=== PATIENT | male | born 1960 | race Caucasian/White ===

== ENCOUNTER 2016-10-20 15:53 | Emergency (ER) | payer MEDICAID ==
[2016-10-20 16:07] VITALS: BP 154/92
[2016-10-20] MEDS ORDERED: Diphtheria,Pertussis(Acell),Tetanus Vaccine 0.5 ML SDV IM ONE (16:43)
[2016-10-20] MEDS ORDERED: Lidocaine 1% 50 ML MDV INJECT ONE (16:43)
[2016-10-20] MEDS ORDERED: Acetaminophen/oxyCODONE 325-5 MG Tab PO ONE (16:43)
--- NOTE | 2016-10-20 17:57 | EDM.PDOC ---
ED HPI GENERAL MEDICAL PROBLEM - General Chief Complaint: Laceration Stated Complaint: R HAND LAC Time Seen by Provider: 10/20/16 16:30 Source of Information: Reports: Patient History Limitations: Reports: No Limitations - History of Present Illness INITIAL COMMENTS - FREE TEXT/NARRATIVE: 56-year-old male presents for evaluation treatment of a laceration to the right palm. Patient reports injury occurred prior to arrival in the ER. He was working with a metal efraín. He states that the efraín caught his hand causing an abrasion and then punctured his right hand. Puncture wound is on the palm near the first metacarpal. Patient reports pain and tenderness. No treatments prior to arrival in the ER. No decreased range of motion, numbness or tingling. Unsure of last tetanus. Onset: Today Location: Reports: Upper Extremity, Right Right Hand Pain Score (Numeric/FACES): 6 - Related Data Allergies Allergy/AdvReac Type Severity Reaction Status Date / Time No Known Allergies Allergy Verified 10/20/16 16:06 Home Meds: Home Meds Acetaminophen/oxyCODONE [Percocet 325-5 MG] 1 tab PO Q6H PRN #12 tablet [Rx] Cephalexin 500 mg PO BID #14 tablet 10/20/16 [Rx] Past Medical History - Past Health History Medical/Surgical History: Denies Medical/Surgical History Social & Family History - Family History Family Medical History: Noncontributory - Tobacco Use Smoking Status *Q: Unknown Ever Smoked ED ROS GENERAL - Review of Systems Review Of Systems: See Below Musculoskeletal: Reports: Hand Pain (right) Skin: Reports: Wound (right hand ventral side) Neurological: Denies: Numbness, Tingling ED EXAM, SKIN/RASH Exam: See Below Exam Limited By: No Limitations General Appearance: Alert, WD/WN, No Apparent Distress Respiratory/Chest: No Respiratory Distress Cardiovascular: Normal Peripheral Pulses, Regular Rate, Rhythm Peripheral Pulses: 2+: Radial (L), Radial (R) Extremities: Normal Range of Motion, Other (able to make a fist, flex and extend fingers both with and without resistance, oppose fingers to thumb, abdduct and adduction fingers) Neurological: Alert, Oriented, Normal Cognition Psychiatric: Normal Affect, Normal Mood Skin: Warm, Dry, Normal Color, Wound/Incision (approximately 2cm in diameter superficial skin avusion to the right ventral hand; 2cm in length "V" shaped laceration to the right ventral hand medial to the first metacarpal) Location, Skin: Upper Extremity, Right Characteristics: Linear Associated features: Tenderness ED SKIN PROCEDURES - Laceration/Wound Repair Right Ventral Hand Lac/Wound length In cm: 1.5 Appearance: Subcutaneous, Irregular Distal NVT: Neuro & Vascular Intact, No Tendon Injury Anesthetic Type: Local Local Anesthesia - Lidocaine (Xylocaine): 1% Plain Local Anesthetic Volume: 2cc Skin Prep: Chlorhexidine (Hibiciens), Saline, Sterile Drape Exploration/Debridement/Repair: Wound Explored, No Foreign Material Found, Other (irrigated extensively with 400mls of sterile water) Closed with: Sutures Suture Size: 4-0 # of Sutures: 2 Suture Type: Nylon, Interrupted, Simple Sterile Dressing Applied: Nurse Tetanus Status Addressed: Yes Complications: No Course - Vital Signs Last Recorded V/S: Last Vital Signs Temp 35.7 C 10/20/16 16:03 Pulse 78 10/20/16 16:03 Resp 18 10/20/16 16:03 BP 154/92 H 10/20/16 16:03 Pulse Ox 97 10/20/16 16:03 - Orders/Labs/Meds Orders: Active Orders 24 hr Category Date Time Status Vaccines to be Administered [RC] PER UNIT ROUTINE Care 10/20/16 16:44 Active Meds: Medications Discontinued Medications Generic Name Dose Route Start Last Admin Trade Name Julianoq PRN Reason Stop Dose Admin Diphtheria/Tetanus/Acell Pertussis 0.5 ml 10/20/16 16:43 10/20/16 17:01 Adacel IM 10/20/16 16:44 0.5 ml .ONCE ONE Administration Lidocaine HCl 50 ml 10/20/16 16:43 10/20/16 16:55 Xylocaine 1% INJECT 10/20/16 16:44 50 ml ONETIME ONE Administration Oxycodone/Acetaminophen 1 tab 10/20/16 16:43 10/20/16 16:55 Percocet 325-5 Mg PO 10/20/16 16:44 1 tab ONETIME ONE Administration - Radiology Interpretation Free Text/Narrative:: xray of the right hand shows no acute fractures or dislocations. No foreign material found. - Re-Assessments/Exams Free Text/Narrative Re-Assessment/Exam: 10/20/16 18:00 The wound was irrigated extensively with about 400 mils of sterile water. Prior to that the wound was soaked in a solution of sterile water and chlorhexidine. Tetanus was updated. 2 sutures were placed to the right palm. Wound was dressed. I will provide the patient with antibiotics this was a deep wound and it sounds like it was a dirty efraín that he cut himself with. Will discharge home at this time. Discharge instructions as documented. Departure - Departure Time of Disposition: 18:01 Disposition: Home, Self-Care 01 Condition: Good Clinical Impression: Abrasion, Laceration - Discharge Information Prescriptions: Acetaminophen/oxyCODONE [Percocet 325-5 MG] 1 tab PO Q6H PRN #12 tablet PRN Reason: Pain Cephalexin 500 mg PO BID #14 tablet Instructions: Laceration Care, Adult Referrals: PCP,None [Primary Care Provider] - Melisa Leon, [employer] [Nurse Practitioner] - Forms: ED Department Discharge Additional Instructions: You were given medication in the ER that can affect your ability to drive and operate machinery. Do not drive or operate machinery within 12 hours of taking prescription narcotic pain medication. Take the cephalexin 1 tablet twice a day for 7 days. Recommend taking this with food. Wash the room with gentle soap and water twice a day. Keep the wound covered. He may apply antibacterial ointment to wound as needed. Monitor for signs of infection such as increased swelling, erythema or pus. Present to the clinic or the [place]. Take [id number] Tylenol or Motrin as needed for pain relief. For severe pain not relieved by Tylenol or Motrin take Percocet 1-2 tabs every 4-[address] operate machinery within 12 hours of taking Percocet. Percocet can be Forming, I recommend you take as few of these as needed to control your pain. Percocet is a combination of oxycodone and Tylenol. Do not take more than 4 g of Tylenol from all sources in 1 day. Have the sutures removed in 10 days. the [facility] clinic located on the east side of the [facility] is open 8 AM to 5 PM and will remove the sutures for free. Please call [phone] to schedule the provider there. Recommend Melisa leon or Selam Noyola. . The tetanus shot you received today is good for the next 10 years. Please return to the ER if your symptoms change or worsen. - My Orders Last 24 Hours: My Active Orders 10/20/16 16:44 Vaccines to be Administered [RC] PER UNIT ROUTINE - Assessment/Plan Last 24 Hours: My Active Orders 10/20/16 16:44 Vaccines to be Administered [RC] PER UNIT ROUTINE
--- NOTE | 2016-10-21 06:50 | CR ---
Right hand: Four views of the right hand were obtained. Comparison: No previous right hand study. Joint space narrowing noted within the third MCP joint. Other joint spaces are preserved. No acute fracture, dislocation or other bony abnormality is seen. Incidental note of old fracture within the distal tuft of the fifth finger. Impression: 1. Degenerative change and old injury. No acute abnormality is identified on right hand study. Diagnostic code #2
== END 2016-10-20 18:24 | disposition home or self-care (01) ==
LOC: JD.ED 15:53
DX: S61.411A Laceration without foreign body of right hand, initial encounter (principal); Z23 Encounter for immunization; W45.8XXA Other foreign body or object entering through skin, initial encounter
CPT/HCPCS: 12001; 73130; 90471; 90715; 99283; A9270

== ENCOUNTER 2019-07-07 07:37 | Inpatient (IN) | payer MEDICAID, OTHER ==
[2019-07-07] MEDS ORDERED: Ondansetron 4 MG/2 ML SDV IVPUSH ONE (08:13)
[2019-07-07] MEDS ORDERED: Famotidine 20 MG/2 ML SDV IVPUSH ONE (08:13)
[2019-07-07] MEDS ORDERED: Sodium Chloride 0.9% 10 ML Syringe FLUSH PRN ×2 (08:13→09:52)
[2019-07-07] MEDS ORDERED: HYDROmorphone 0.5 MG/0.5 ML Syringe IVPUSH ONE ×3 (08:14→11:29)
[2019-07-07] MEDS ORDERED: Sodium Chloride 0.9% 1,000 ML IV SCH (08:15)
--- NOTE | 2019-07-07 09:20 | CR ---
Abdomen: Supine and upright views of the abdomen were obtained. Comparison: No prior abdominal imaging is available. Diffuse gas is seen within small bowel and colon. Small bowel is slightly dilated. Multiple air-fluid levels are seen within small bowel. No free air is appreciated. Bony structures show nothing acute. Impression: 1. Diffuse increased gas with mildly dilated small bowel as well as air-fluid levels within small bowel. Findings suggest the possibility of a diffuse ileus or gastroenteritis. Difficult to completely exclude an early distal small bowel obstruction. 2. No other acute finding is seen. Diagnostic code #3 Study was dictated in MDT
[2019-07-07] MEDS ORDERED: Metoclopramide 10 MG/2 ML SDV IVPUSH ONE (09:41)
[2019-07-07] MEDS ORDERED: Diatrizoate Meglumine/Diatrizoate Sodium 37% 120 ML Bottle PO ONE (09:52)
[2019-07-07] MEDS ORDERED: Iopamidol 612 MG/ML 100 ML Bottle IVPUSH ONE (09:52)
--- NOTE | 2019-07-07 10:07 | EDM.PDOC ---
ED HPI GENERAL MEDICAL PROBLEM - General Chief Complaint: Abdominal Pain Stated Complaint: ABDOMINAL PAIN,VOMITING AND UNABLE TO EAT Time Seen by Provider: 07/07/19 07:52 Source of Information: Reports: Patient, RN Notes Reviewed - History of Present Illness INITIAL COMMENTS - FREE TEXT/NARRATIVE: 59 year old male comes in with abd pain. He had onset of abd pain, vomiting, and at least 1 episode of diarrhea late Saturday evening around midnight which would now be about 2 1/2 days ago. He has had continued mid to lower abd pain, nausea, has not been able to eat, drinking fluid makes him "more sick". No further vomting yesterday or today. No prior abd surgeries. No further diarrhea. Lower Abdominal Pain Score (Numeric/FACES): 6 - Related Data Allergies Allergy/AdvReac Type Severity Reaction Status Date / Time No Known Allergies Allergy Verified 07/07/19 07:45 Home Meds: Home Meds . [No Known Home Meds] 07/07/19 [History] Past Medical History - Past Health History Medical/Surgical History: Denies Medical/Surgical History Social & Family History - Family History Family Medical History: Noncontributory - Tobacco Use Smoking Status *Q: Current Every Day Smoker Years of Tobacco use: 25 Packs/Tins Daily: 0.2 - Caffeine Use Caffeine Use: Reports: Coffee - Recreational Drug Use Recreational Drug Use: No ED ROS GENERAL - Review of Systems Review Of Systems: See Below Constitutional: Denies: Fever, Chills, Diaphoresis HEENT: Reports: No Symptoms Respiratory: Denies: Shortness of Breath Cardiovascular: Denies: Chest Pain GI/Abdominal: Reports: Abdominal Pain, Diarrhea, Nausea, Vomiting. Denies: Hematochezia, Melena Musculoskeletal: Denies: Back Pain Skin: Reports: No Symptoms Neurological: Reports: No Symptoms ED EXAM, GI/ABD - Physical Exam Exam: See Below General Appearance: Alert, Moderate Distress Throat/Mouth: Other (oral mucosa dry) Head: Atraumatic Neck: Supple Respiratory/Chest: No Respiratory Distress, Lungs Clear, Normal Breath Sounds Cardiovascular: Regular Rate, Rhythm GI/Abdominal Exam: Tender (diffuse tenderness, mild guarding and rebound tenderness, mild distension mid and lower abd) Back Exam: No: CVA Tenderness (L), CVA Tenderness (R) Extremities: Normal Inspection, Normal Range of Motion. No: Pedal Edema, Leg Pain Course - Vital Signs Last Recorded V/S: Last Vital Signs Temp 101.5 F H 07/07/19 11:59 Pulse 68 07/07/19 11:40 Resp 20 07/07/19 11:40 BP 132/84 07/07/19 11:40 Pulse Ox 94 L 07/07/19 11:40 - Orders/Labs/Meds Orders: Active Orders 24 hr Category Date Time Status Gastrointestinal Tube Mgmt [RC] ASDIRECTED Care 07/07/19 12:36 Active Peripheral IV Care [RC] . DIRECTED Care 07/07/19 08:13 Active Lactated Ringers [Ringers, Lactated] 1,000 ml Med 07/07/19 12:15 Active IV ASDIRECTED Sodium Chloride 0.9% [Normal Saline] 1,000 ml Med 07/07/19 08:15 Active IV ONETIME Sodium Chloride 0.9% [Saline Flush] Med 07/07/19 08:13 Active 10 ml FLUSH ASDIRECTED PRN Sodium Chloride 0.9% [Saline Flush] Med 07/07/19 09:52 Active 10 ml FLUSH ONETIME PRN NG [Nasogastric Orogastric Tube Insertion] [OM.PC] Oth 07/07/19 12:36 Ordered Routine Peripheral IV Insertion Adult [OM.PC] Stat Ot 07/07/19 08:13 Ordered Medication Orders Heparin Sodium (Porcine) (Heparin Sodium) 5,000 units SUBCUT Q8H MINDY Sodium Chloride (Normal Saline) 1,000 mls @ 999 mls/hr IV ONETIME MNIDY Last Admin: 07/07/19 08:30 Dose: 999 mls/hr Lactated Ringer's (Ringers, Lactated) 1,000 mls @ 150 mls/hr IV ASDIRECTED MINDY Piperacillin Sod/Tazobactam (Sod 4.5 gm/ Sodium Chloride) 100 mls @ 25 mls/hr IV Q8H MINDY Piperacillin Sod/Tazobactam (Sod 4.5 gm/ Sodium Chloride) 100 mls @ 200 mls/hr IV ONETIME ONE Stop: 07/07/19 13:29 Sodium Chloride (Saline Flush) 10 ml FLUSH ASDIRECTED PRN PRN Reason: Keep Vein Open Last Admin: 07/07/19 08:20 Dose: 10 ml Sodium Chloride (Saline Flush) 10 ml FLUSH ONETIME PRN PRN Reason: IV FLUSH Last Admin: 07/07/19 10:56 Dose: 10 ml Labs: Laboratory Tests 07/07/19 07/07/19 07/07/19 Range/Units 08:20 08:20 08:20 WBC 20.14 H (4.23-9.07) K/mm3 RBC 5.09 (4.63-6.08) M/mm3 Hgb 15.3 (13.7-17.5) gm/dl Hct 46.1 (40.1-51.0) % MCV 90.6 (79.0-92.2) fl MCH 30.1 (25.7-32.2) pg MCHC 33.2 (32.2-35.5) g/dl RDW Std Deviation 47.5 H (35.1-43.9) fL Plt Count 301 (163-337) K/mm3 MPV 9.2 L (9.4-12.3) fl Neutrophils % (Manual) 93 H (40-60) % Band Neutrophils % 0 (0-10) % Lymphocytes % (Manual) 2 L (20-40) % Atypical Lymphs % 0 % Monocytes % (Manual) 5 (2-10) % Eosinophils % (Manual) 0 L (0.8-7.0) % Basophils % (Manual) 0 L (0.2-1.2) Platelet Estimate Adequate RBC Morph Comment Normal Sodium 133 L (136-145) mEq/L Potassium 4.3 (3.5-5.1) mEq/L Chloride 96 L (98-107) mEq/L Carbon Dioxide 28 (21-32) mEq/L Anion Gap 13.3 (5-15) BUN 25 H (7-18) mg/dL Creatinine 1.1 (0.7-1.3) mg/dL Est Cr Clr Drug Dosing 66.86 mL/min Estimated GFR (MDRD) > 60 (>60) mL/min BUN/Creatinine Ratio 22.7 H (14-18) Glucose 127 H (74-106) mg/dL Calcium 9.8 (8.5-10.1) mg/dL Total Bilirubin 0.8 (0.2-1.0) mg/dL AST 18 (15-37) U/L ALT 27 (16-63) U/L Alkaline Phosphatase 74 (46-116) U/L C-Reactive Protein <0.2 (<1.0) mg/dL Total Protein 8.3 H (6.4-8.2) g/dl Albumin 3.4 (3.4-5.0) g/dl Globulin 4.9 gm/dL Albumin/Globulin Ratio 0.7 L (1-2) Lipase (73-393) U/L 07/07/19 Range/Units 08:20 WBC (4.23-9.07) K/mm3 RBC (4.63-6.08) M/mm3 Hgb (13.7-17.5) gm/dl Hct (40.1-51.0) % MCV (79.0-92.2) fl MCH (25.7-32.2) pg MCHC (32.2-35.5) g/dl RDW Std Deviation (35.1-43.9) fL Plt Count (163-337) K/mm3 MPV (9.4-12.3) fl Neutrophils % (Manual) (40-60) % Band Neutrophils % (0-10) % Lymphocytes % (Manual) (20-40) % Atypical Lymphs % % Monocytes % (Manual) (2-10) % Eosinophils % (Manual) (0.8-7.0) % Basophils % (Manual) (0.2-1.2) Platelet Estimate RBC Morph Comment Sodium (136-145) mEq/L Potassium (3.5-5.1) mEq/L Chloride (98-107) mEq/L Carbon Dioxide (21-32) mEq/L Anion Gap (5-15) BUN (7-18) mg/dL Creatinine (0.7-1.3) mg/dL Est Cr Clr Drug Dosing mL/min Estimated GFR (MDRD) (>60) mL/min BUN/Creatinine Ratio (14-18) Glucose (74-106) mg/dL Calcium (8.5-10.1) mg/dL Total Bilirubin (0.2-1.0) mg/dL AST (15-37) U/L ALT (16-63) U/L Alkaline Phosphatase (46-116) U/L C-Reactive Protein (<1.0) mg/dL Total Protein (6.4-8.2) g/dl Albumin (3.4-5.0) g/dl Globulin gm/dL Albumin/Globulin Ratio (1-2) Lipase 43 L (73-393) U/L Meds: Medications Generic Name Dose Route Start Last Admin Trade Name Joy PRN Reason Stop Dose Admin Heparin Sodium (Porcine) 5,000 units 07/07/19 12:45 Heparin Sodium SUBCUT Q8H MINDY Sodium Chloride 1,000 mls @ 999 mls/hr 07/07/19 08:15 07/07/19 08:30 Normal Saline IV 999 mls/hr ONETIME MINDY Administration Lactated Ringer's 1,000 mls @ 150 mls/hr 07/07/19 12:15 Ringers, Lactated IV ASDIRECTED MINDY Piperacillin Sod/Tazobactam 100 mls @ 25 mls/hr 07/07/19 21:00 Sod 4.5 gm/ Sodium Chloride IV Q8H MINDY Piperacillin Sod/Tazobactam 100 mls @ 200 mls/hr 07/07/19 13:00 Sod 4.5 gm/ Sodium Chloride IV 07/07/19 13:29 ONETIME ONE Sodium Chloride 10 ml 07/07/19 08:13 07/07/19 08:20 Saline Flush FLUSH 10 ml ASDIRECTED PRN Administration Keep Vein Open Sodium Chloride 10 ml 07/07/19 09:52 07/07/19 10:56 Saline Flush FLUSH 10 ml ONETIME PRN Administration IV FLUSH Discontinued Medications Generic Name Dose Route Start Last Admin Trade Name Joy PRN Reason Stop Dose Admin Acetaminophen 975 mg 07/07/19 11:49 07/07/19 11:59 Tylenol PO 07/07/19 11:50 975 mg NOW ONE Administration Diatrizoate Meglum/Diatrizoate Sod 120 ml 07/07/19 09:52 Gastrografin 37% PO 07/07/19 09:53 ONETIME ONE Famotidine 20 mg 07/07/19 08:13 07/07/19 08:25 Pepcid IVPUSH 07/07/19 08:14 20 mg ONETIME ONE Administration Hydromorphone HCl 0.5 mg 07/07/19 08:14 07/07/19 08:28 Dilaudid IVPUSH 07/07/19 08:15 0.5 mg ONETIME ONE Administration Hydromorphone HCl 0.5 mg 07/07/19 09:40 07/07/19 09:47 Dilaudid IVPUSH 07/07/19 09:41 0.5 mg ONETIME ONE Administration Hydromorphone HCl 0.5 mg 07/07/19 11:29 07/07/19 11:35 Dilaudid IVPUSH 07/07/19 11:30 0.5 mg ONETIME ONE Administration Lactated Ringer's 1,000 mls @ 999 mls/hr 07/07/19 10:08 07/07/19 10:17 Ringers, Lactated IV 07/07/19 11:08 999 mls/hr .BOLUS ONE Administration Iopamidol 100 ml 07/07/19 09:52 07/07/19 10:56 Isovue-300 (61%) IVPUSH 07/07/19 09:53 100 ml ONETIME ONE Administration Metoclopramide HCl 5 mg 07/07/19 09:41 07/07/19 09:45 Reglan IVPUSH 07/07/19 09:42 5 mg ONETIME ONE Administration Ondansetron HCl 4 mg 07/07/19 08:13 07/07/19 08:23 Zofran IVPUSH 07/07/19 08:14 4 mg ONETIME ONE Administration - Re-Assessments/Exams Free Text/Narrative Re-Assessment/Exam: 07/07/19 09:30. Flat and upright abd does show quite extensive diffuse air fluid levels. CT of abd/pelvis ordered. WBC 20,000, CRP 0.2. 07/07/19 11:50. CT shows dilated small bowel, mildly dilated air filled colol. Seveloping distal small bowel or colonic obstruction possible. See Radiology report for details. Discussed with Dr Ely, will see patient in ED. Departure - Departure Time of Disposition: 12:20 Disposition: Admitted As Inpatient 68 Condition: Serious Clinical Impression: Ileus, unspecified Abdominal pain Qualifiers: Abdominal location: generalized Qualified Code(s): R10.84 - Generalized abdominal pain Vomiting Qualifiers: Vomiting type: unspecified Vomiting Intractability: non-intractable Nausea presence: with nausea Qualified Code(s): R11.2 - Nausea with vomiting, unspecified - Discharge Information Sepsis Event Note - Evaluation Sepsis Screening Result: No Definite Risk - Focused Exam Vital Signs: Vital Signs Temp Temp Pulse Resp BP Pulse Ox 07/07/19 11:59 101.5 F H 07/07/19 11:40 101.5 F H 68 20 132/84 94 L 07/07/19 07:45 99.0 F 78 20 135/84 95 Date Exam was Performed: 07/07/19 Time Exam was Performed: 13:07 ED Communication - Discussed Case With (1) Discussed Case With (1): Admitting Provider ([facility], decision to admit at about 12:20) - My Orders Last 24 Hours: My Active Orders 07/07/19 08:13 Peripheral IV Care [RC] . DIRECTED Sodium Chloride 0.9% [Saline Flush] 10 ml FLUSH ASDIRECTED PRN Peripheral IV Insertion Adult [OM.PC] Stat 07/07/19 08:15 Sodium Chloride 0.9% [Normal Saline] 1,000 ml IV ONETIME 07/07/19 09:52 Sodium Chloride 0.9% [Saline Flush] 10 ml FLUSH ONETIME PRN 07/07/19 12:15 Lactated Ringers [Ringers, Lactated] 1,000 ml IV ASDIRECTED 07/07/19 12:36 Gastrointestinal Tube Mgmt [RC] ASDIRECTED NG [Nasogastric Orogastric Tube Insertion] [OM.PC] Routine - Assessment/Plan Last 24 Hours: My Active Orders 07/07/19 08:13 Peripheral IV Care [RC] . DIRECTED Sodium Chloride 0.9% [Saline Flush] 10 ml FLUSH ASDIRECTED PRN Peripheral IV Insertion Adult [OM.PC] Stat 07/07/19 08:15 Sodium Chloride 0.9% [Normal Saline] 1,000 ml IV ONETIME 07/07/19 09:52 Sodium Chloride 0.9% [Saline Flush] 10 ml FLUSH ONETIME PRN 07/07/19 12:15 Lactated Ringers [Ringers, Lactated] 1,000 ml IV ASDIRECTED 07/07/19 12:36 Gastrointestinal Tube Mgmt [RC] ASDIRECTED NG [Nasogastric Orogastric Tube Insertion] [OM.PC] Routine
[2019-07-07] MEDS ORDERED: Lactated Ringers 1,000 ML IV ONE (10:08)
--- NOTE | 2019-07-07 11:29 | CT ---
CT abdomen and pelvis Technique: Multiple axial sections were obtained from above the dome of the diaphragm inferiorly through the pubic symphysis. Oral contrast was given which remains within the stomach and within the proximal bowel. Intravenous contrast was utilized. Delayed images were obtained through the bladder. Comparison: Prior abdominal x-ray performed earlier on same day (8:48 AM). Findings: Emphysematous change is noted within both lung bases. Liver and spleen shows no focal parenchymal abnormality. Adrenal glands show no nodule. Pancreas is within normal limits. Kidneys show symmetric contrast enhancement without hydronephrosis or mass. Aorta shows no aneurysm. No retroperitoneal adenopathy or mesenteric abnormalities are seen. Diffuse gaseous dilatation of small bowel is seen which also shows evidence of fluid. Gas dilated right and transverse colon is seen. Nondilated descending colon is seen. No discrete etiology is seen for the transition point near the splenic flexure. Fluid is seen within the pelvis which is likely reactive. No additional pelvic abnormality is appreciated. Appendix not visualized with certainty. Delayed images shows contrast within the distal ureters and bladder. Bone window settings were reviewed which shows mild scattered degenerative change within the spine. Impression: 1. Gas dilated small bowel also containing fluid. Slightly dilated air-filled colon within the right transverse regions. Descending colon is collapsed. Etiology for the transitional point within splenic flexure not visualized. This bowel gas pattern is confusing and diffuse dilatation from mesenteric ischemia is possible but no correlating etiology is seen within the proximal superior mesenteric or celiac axis is seen. Developing distal small bowel or colonic obstruction is possible. Follow-up plain film study recommended. 2. Fluid within the pelvis most likely reactive. 3. Emphysematous change within both lung bases. 4. Other findings believed to be nonacute in incidental as noted above. Diagnostic code #3
[2019-07-07] MEDS ORDERED: Acetaminophen 325 MG Tab PO ONE (11:49)
--- NOTE | 2019-07-07 12:57 | PCM.HP.2 ---
H&P History of Present Illness - General Date of Service: 07/07/19 Admit Problem/Dx: Admission Diagnosis/Problem Admission Diagnosis/Problem Acute abdomen Source of Information: Patient History Limitations: Reports: No Limitations - History of Present Illness Duration of Symptoms: Reports: Day(s): Location: Reports: Abdomen Quality: Reports: Ache Severity: Severe Worsens with: Reports: Movement Associated Symptoms: Reports: Loss of Appetite, Nausea/Vomiting Other HPI/Comments: Mr. Luna is a 59 yo who presents with abdominal pain which began almost 72 hours ago. Saturday evening, he developed sudden onset severe cramping lower abdominal pain, and he felt the urge to have a bowel movement. He had some loose stool and then vomited. This did not provide him much relief. Since then, the pain has been slightly more tolerable than when it began, but it has not abated. He denies any vomiting today. He is not passing flatus and last bowel movement was Saturday. He is febrile in the emergency department with temperature of 38.6 C, and lab work is significant for WBC of about 20,000. A CT scan shows diffusely dilated small bowel and colon up to a transition point at the distal transverse colon. The patient denies any significant medical history, although he looks unhealthy and does not see doctors. He denies any history of hospitalization. On review of systems, he denies unintentional weight loss, hematemesis or melena. He has never had a colonoscopy or any abdominal operations. He has no sick contacts. He denies any relevant family history, and he reports that since his DUI two years ago, he has not had any alcohol or other illicit substances. He smokes a few cigarettes a day. Lower Abdominal Pain Score (Numeric/FACES): 6 - Related Data Allergies/Adverse Reactions: Allergies Allergy/AdvReac Type Severity Reaction Status Date / Time No Known Allergies Allergy Verified 07/07/19 07:45 Home Medications: Home Meds . [No Known Home Meds] 07/07/19 [History] Past Medical History - Past Health History Medical/Surgical History: Denies Medical/Surgical History Social & Family History - Family History Family Medical History: Noncontributory - Tobacco Use Smoking Status *Q: Current Every Day Smoker Years of Tobacco use: 25 Packs/Tins Daily: 0.2 - Caffeine Use Caffeine Use: Reports: Coffee - Recreational Drug Use Recreational Drug Use: No H&P Review of Systems - Review of Systems: Review Of Systems: See Below General: Reports: Fever, Malaise, Decreased Appetite HEENT: Reports: No Symptoms Pulmonary: Reports: No Symptoms Cardiovascular: Reports: No Symptoms Gastrointestinal: Reports: Abdominal Pain, Anorexia, Diarrhea, Distension, Vomiting Genitourinary: Reports: No Symptoms Musculoskeletal: Reports: No Symptoms Skin: Reports: No Symptoms Psychiatric: Reports: No Symptoms Neurological: Reports: No Symptoms Hematologic/Lymphatic: Reports: No Symptoms Immunologic: Reports: No Symptoms Exam - Exam Exam: See Below - Vital Signs Vital Signs: Last Vital Signs Temp 38.6 C H 07/07/19 11:59 Pulse 68 07/07/19 11:40 Resp 20 07/07/19 11:40 BP 132/84 07/07/19 11:40 Pulse Ox 94 L 07/07/19 11:40 Weight: 65.771 kg - Exam General: Alert, Oriented, Cooperative Neck: Supple, Trachea Midline Lungs: Rales, Wheezing Cardiovascular: Regular Rate, Regular Rhythm GI/Abdominal Exam: Distended, Guarding, Rebound, Tender (Male) Exam: No Hernia Rectal (Males) Exam: Normal Exam Back Exam: Normal Inspection Extremities: Normal Inspection Skin: Warm, Dry Neuro Extensive - Mental Status: Alert, Oriented x3, Normal Mood/Affect Psychiatric: Normal Mood - Patient Data Lab Results Last 24 hrs: Laboratory Results - last 24 hr 07/07/19 07/07/19 07/07/19 Range/Units 08:20 08:20 08:20 WBC 20.14 H (4.23-9.07) K/mm3 RBC 5.09 (4.63-6.08) M/mm3 Hgb 15.3 (13.7-17.5) gm/dl Hct 46.1 (40.1-51.0) % MCV 90.6 (79.0-92.2) fl MCH 30.1 (25.7-32.2) pg MCHC 33.2 (32.2-35.5) g/dl RDW Std Deviation 47.5 H (35.1-43.9) fL Plt Count 301 (163-337) K/mm3 MPV 9.2 L (9.4-12.3) fl Neutrophils % (Manual) 93 H (40-60) % Band Neutrophils % 0 (0-10) % Lymphocytes % (Manual) 2 L (20-40) % Atypical Lymphs % 0 % Monocytes % (Manual) 5 (2-10) % Eosinophils % (Manual) 0 L (0.8-7.0) % Basophils % (Manual) 0 L (0.2-1.2) Platelet Estimate Adequate RBC Morph Comment Normal Sodium 133 L (136-145) mEq/L Potassium 4.3 (3.5-5.1) mEq/L Chloride 96 L (98-107) mEq/L Carbon Dioxide 28 (21-32) mEq/L Anion Gap 13.3 (5-15) BUN 25 H (7-18) mg/dL Creatinine 1.1 (0.7-1.3) mg/dL Est Cr Clr Drug Dosing 66.86 mL/min Estimated GFR (MDRD) > 60 (>60) mL/min BUN/Creatinine Ratio 22.7 H (14-18) Glucose 127 H (74-106) mg/dL Calcium 9.8 (8.5-10.1) mg/dL Total Bilirubin 0.8 (0.2-1.0) mg/dL AST 18 (15-37) U/L ALT 27 (16-63) U/L Alkaline Phosphatase 74 (46-116) U/L C-Reactive Protein <0.2 (<1.0) mg/dL Total Protein 8.3 H (6.4-8.2) g/dl Albumin 3.4 (3.4-5.0) g/dl Globulin 4.9 gm/dL Albumin/Globulin Ratio 0.7 L (1-2) Lipase (73-393) U/L 07/07/19 Range/Units 08:20 WBC (4.23-9.07) K/mm3 RBC (4.63-6.08) M/mm3 Hgb (13.7-17.5) gm/dl Hct (40.1-51.0) % MCV (79.0-92.2) fl MCH (25.7-32.2) pg MCHC (32.2-35.5) g/dl RDW Std Deviation (35.1-43.9) fL Plt Count (163-337) K/mm3 MPV (9.4-12.3) fl Neutrophils % (Manual) (40-60) % Band Neutrophils % (0-10) % Lymphocytes % (Manual) (20-40) % Atypical Lymphs % % Monocytes % (Manual) (2-10) % Eosinophils % (Manual) (0.8-7.0) % Basophils % (Manual) (0.2-1.2) Platelet Estimate RBC Morph Comment Sodium (136-145) mEq/L Potassium (3.5-5.1) mEq/L Chloride (98-107) mEq/L Carbon Dioxide (21-32) mEq/L Anion Gap (5-15) BUN (7-18) mg/dL Creatinine (0.7-1.3) mg/dL Est Cr Clr Drug Dosing mL/min Estimated GFR (MDRD) (>60) mL/min BUN/Creatinine Ratio (14-18) Glucose (74-106) mg/dL Calcium (8.5-10.1) mg/dL Total Bilirubin (0.2-1.0) mg/dL AST (15-37) U/L ALT (16-63) U/L Alkaline Phosphatase (46-116) U/L C-Reactive Protein (<1.0) mg/dL Total Protein (6.4-8.2) g/dl Albumin (3.4-5.0) g/dl Globulin gm/dL Albumin/Globulin Ratio (1-2) Lipase 43 L (73-393) U/L Result Diagrams: 07/07/19 08:20 07/07/19 08:20 Sepsis Event Note - Evaluation Sepsis Screening Result: No Definite Risk - Focused Exam Vital Signs: Vital Signs Temp Temp Pulse Resp BP Pulse Ox 07/07/19 11:59 38.6 C H 07/07/19 11:40 38.6 C H 68 20 132/84 94 L 07/07/19 07:45 37.2 C 78 20 135/84 95 Date Exam was Performed: 07/07/19 Time Exam was Performed: 12:50 *Q Meaningful Use (ADM) - VTE Risk Assess *Q Each Risk Factor Represents 1 Point: Age 41 - 59 years Total Score 1 Point Risk Factors: 1 Each Risk Factor Represents 2 Points: Patient confined to bed greater than 72 hours Total Score 2 Point Risk Factors: 2 Problem List Initiated/Reviewed/Updated: Yes Orders Last 24hrs: Active Orders 24 hr Category Date Time Status Patient Status [ADT] Routine ADT 07/07/19 12:40 Ordered Activity as Tolerated [RC] .Routine Care 07/07/19 12:40 Ordered Antiembolic Devices [RC] PER UNIT ROUTINE Care 07/07/19 12:41 Ordered Communication Order [RC] ASDIRECTED Care 07/07/19 12:44 Ordered EKG Documentation Completion [RC] ASDIRECTED Care 07/07/19 12:48 Ordered Gastrointestinal Tube Mgmt [RC] ASDIRECTED Care 07/07/19 12:36 Active Oxygen Therapy [RC] PRN Care 07/07/19 12:40 Ordered Peripheral IV Care [RC] . DIRECTED Care 07/07/19 08:13 Active RT Incentive Spirometry [RC] Q1HWA Care 07/07/19 12:40 Ordered Vital Signs [RC] Q4HR Care 07/07/19 12:40 Ordered Nothing Per Oral Diet [DIET] Diet 07/07/19 Breakfast Ordered BASIC METABOLIC PANEL,BMP [CHEM] AM Lab 07/08/19 05:11 Ordered BASIC METABOLIC PANEL,BMP [CHEM] Timed Lab 07/07/19 16:00 Ordered CBC WITH AUTO DIFF [HEME] AM Lab 07/08/19 05:11 Ordered CBC WITH AUTO DIFF [HEME] Timed Lab 07/07/19 16:00 Ordered DRUG SCREEN, URINE [URCHEM] Stat Lab 07/07/19 12:45 Ordered LACTIC ACID W/ REFLEX [LACTATE SEPSIS W/ REFLEX] [CHEM] Lab 07/07/19 12:47 Ordered Stat Heparin Sodium Med 07/07/19 12:45 Ordered 5,000 units SUBCUT Q8H Lactated Ringers [Ringers, Lactated] 1,000 ml Med 07/07/19 12:15 Active IV ASDIRECTED Piperacillin/Tazobactam [Piperacil-Tazobact] 4.5 gm Med 07/07/19 13:00 Active Sodium Chloride 0.9% [Normal Saline] 100 ml IV ONETIME Piperacillin/Tazobactam [Piperacil-Tazobact] 4.5 gm Med 07/07/19 12:45 Ordered Sodium Chloride 0.9% [Normal Saline] 100 ml IV Q8H Sodium Chloride 0.9% [Normal Saline] 1,000 ml Med 07/07/19 08:15 Active IV ONETIME Sodium Chloride 0.9% [Saline Flush] Med 07/07/19 08:13 Active 10 ml FLUSH ASDIRECTED PRN Sodium Chloride 0.9% [Saline Flush] Med 07/07/19 09:52 Active 10 ml FLUSH ONETIME PRN NG [Nasogastric Orogastric Tube Insertion] [OM.PC] Oth 07/07/19 12:36 Ordered Routine Peripheral IV Insertion Adult [OM.PC] Stat Oth 07/07/19 08:13 Ordered Sequential Compression Device [OM.PC] Routine Oth 07/07/19 12:40 Ordered Resuscitation Status Routine Resus Stat 07/07/19 12:40 Ordered EKG 12 Lead [EK] Stat Ther 07/07/19 12:48 Ordered Medication Orders Heparin Sodium (Porcine) (Heparin Sodium) 5,000 units SUBCUT Q8H MINDY Sodium Chloride (Normal Saline) 1,000 mls @ 999 mls/hr IV ONETIME MINDY Last Admin: 07/07/19 08:30 Dose: 999 mls/hr Lactated Ringer's (Ringers, Lactated) 1,000 mls @ 150 mls/hr IV ASDIRECTED MINDY Piperacillin Sod/Tazobactam (Sod 4.5 gm/ Sodium Chloride) 100 mls @ 25 mls/hr IV Q8H MINDY Piperacillin Sod/Tazobactam (Sod 4.5 gm/ Sodium Chloride) 100 mls @ 200 mls/hr IV ONETIME ONE Stop: 07/07/19 13:29 Sodium Chloride (Saline Flush) 10 ml FLUSH ASDIRECTED PRN PRN Reason: Keep Vein Open Last Admin: 07/07/19 08:20 Dose: 10 ml Sodium Chloride (Saline Flush) 10 ml FLUSH ONETIME PRN PRN Reason: IV FLUSH Last Admin: 07/07/19 10:56 Dose: 10 ml Assessment/Plan Comment:: Abdominal pain associated with fever, diarrhea, vomiting, with imaging findings more suggestive of ileus, though possible colonic obstruction in noted. Differential at this point is led by gastroenteritis vs obstructing colon cancer ; though based on the history I favor an acute, infectious process. Though the abdominal exam is consistent with peritonitis, the patient is in no acute distress and hemodynamics are within normal range. Plan for admission, NG tube decompression, serial abdominal examinations, IV fluid resuscitation, repeat lab work later this afternoon, and broad-spectrum IV antibiotics. Currently there is low threshold for exploratory laparotomy. - Mortality Measure Prognosis:: Good
[2019-07-07] MEDS ORDERED: Piperacillin/Tazobactam 4.5 GM in Sodium Chloride 0.9% 100 ML IV ONE (13:00)
[2019-07-07] MEDS: Heparin Sodium 5,000 Units/ML Vial SUBCUT SCH ×2 (13:32→21:12)
[2019-07-07] MEDS: Lactated Ringers 1,000 ML IV SCH ×2 (14:55→21:13)
[2019-07-07] MEDS ORDERED: Benzocaine 20% Oral Spray 59.2 ML Canister MUCMEM PRN (15:24)
[2019-07-07] MEDS: Ketorolac 30 MG/ML SDV IVPUSH PRN (19:57)
[2019-07-07] MEDS: Piperacillin/Tazobactam 4.5 GM in Sodium Chloride 0.9% 100 ML IV SCH (21:11)
[2019-07-08] MEDS: Piperacillin/Tazobactam 4.5 GM in Sodium Chloride 0.9% 100 ML IV SCH ×3 (04:51→20:32)
[2019-07-08] MEDS: Heparin Sodium 5,000 Units/ML Vial SUBCUT SCH ×3 (04:51→20:32)
[2019-07-08] MEDS: Ketorolac 30 MG/ML SDV IVPUSH PRN ×2 (04:57→20:32)
--- NOTE | 2019-07-08 08:09 | PCM.SN ---
- Free Text/Narrative Note: Admitted yesterday with fever, leukocytosis, abdominal pain, and findings suggestive of bowel obstruction versus gastroenteritis. Markedly improved with NG decompression, antibiotics, and IV fluids. Urine tox screen positive for methamphetamine. S: feeling better, pain rated at a 4/10. Passed flatus. O: No fever since admission, HR 70s, SBP 120s-130s, SpO2 92-95% on room air Adequate urine output recorded. NG output ~1L bilious Abdomen is softer, less distended, less tender A: Improved in 24 hours, with diagnosis still unclear, though differential includes bowel ischemia secondary to methamphetamine abuse, gastroenteritis, partial colonic obstruction. P: Radiology unable to perform gastrograffin enema to rule out colonic obstruction due to staffing. Plan for fleets enema x 2 today in order to prep for diagnostic colonoscopy this afternoon.
[2019-07-08] MEDS: D5 1/2 NS w/ 20 mEq/L KCl 1,000 ML IV SCH (08:45)
--- NOTE | 2019-07-08 10:39 | PCM.PREANE ---
Preanesthetic Assessment - Anesthesia/Transfusion/Family Hx Anesthesia History: No Prior Anesthesia Transfusion History: No Prior Transfusion(s) - Review of Systems General: No Symptoms Pulmonary: Cough, Sputum Cardiovascular: No Symptoms Gastrointestinal: No Symptoms Neurological: No Symptoms Other: Reports: None - Physical Assessment NPO Status Date: 07/08/19 NPO Status Time: 08:00 (CLQ) Vital Signs: Last Vital Signs Temp 98.8 F 07/08/19 03:51 Pulse 73 07/08/19 03:51 Resp 18 07/08/19 03:51 BP 132/83 07/08/19 03:51 Pulse Ox 92 L 07/08/19 03:51 Height: 1.68 m Weight: 63.14 kg ASA Class: 2 Mental Status: Alert & Oriented x3 Airway Class: Mallampati = 3 Dentition: Reports: Broken Tooth/Teeth, Missing Tooth/Teeth (very poor dentition , multiple missing, upper left canines/incisors reported loose), Caries Thyro-Mental Finger Breadths: 3 Mouth Opening Finger Breadths: 3 ROM/Head Extension: Full Lungs: Normal Respiratory Effort, Rales (lower lobes) Cardiovascular: Regular Rate, Regular Rhythm - Lab Values: Laboratory Last Values WBC 4.38 K/mm3 (4.23-9.07) 07/08/19 05:25 RBC 4.35 M/mm3 (4.63-6.08) L 07/08/19 05:25 Hgb 13.1 gm/dl (13.7-17.5) L 07/08/19 05:25 Hct 39.6 % (40.1-51.0) L 07/08/19 05:25 MCV 91.0 fl (79.0-92.2) 07/08/19 05:25 MCH 30.1 pg (25.7-32.2) 07/08/19 05:25 MCHC 33.1 g/dl (32.2-35.5) 07/08/19 05:25 RDW Std Deviation 46.7 fL (35.1-43.9) H 07/08/19 05:25 Plt Count 267 K/mm3 (163-337) 07/08/19 05:25 MPV 9.5 fl (9.4-12.3) 07/08/19 05:25 Neut % (Auto) 81.1 % (34.0-67.9) H 07/08/19 05:25 Lymph % (Auto) 6.6 % (21.8-53.1) L 07/08/19 05:25 [place] % (Auto) 11.4 % (5.3-12.2) 07/08/19 05:25 Eos % (Auto) 0.7 (0.8-7.0) L 07/08/19 05:25 Baso % (Auto) 0.2 % (0.1-1.2) 07/08/19 05:25 Neut # (Auto) 3.55 K/mm3 (1.78-5.38) 07/08/19 05:25 Lymph # (Auto) 0.29 K/mm3 (1.32-3.57) L 07/08/19 05:25 [place]aca # (Auto) 0.50 K/mm3 (0.30-0.82) 07/08/19 05:25 Eos # (Auto) 0.03 K/mm3 (0.04-0.54) L 07/08/19 05:25 Baso # (Auto) 0.01 K/mm3 (0.01-0.08) 07/08/19 05:25 Neutrophils % (Manual) 93 % (40-60) H 07/07/19 08:20 Band Neutrophils % 0 % (0-10) 07/07/19 08:20 Lymphocytes % (Manual) 2 % (20-40) L 07/07/19 08:20 Atypical Lymphs % 0 % 07/07/19 08:20 Monocytes % (Manual) 5 % (2-10) 07/07/19 08:20 Eosinophils % (Manual) 0 % (0.8-7.0) L 07/07/19 08:20 Basophils % (Manual) 0 (0.2-1.2) L 07/07/19 08:20 Manual Slide Review Abnormal smear 07/08/19 05:25 Platelet Estimate Adequate 07/07/19 08:20 RBC Morph Comment Normal 07/07/19 08:20 Sodium 135 mEq/L (136-145) L 07/08/19 05:25 Potassium 3.8 mEq/L (3.5-5.1) 07/08/19 05:25 Chloride 96 mEq/L (98-107) L 07/08/19 05:25 Carbon Dioxide 26 mEq/L (21-32) 07/08/19 05:25 Anion Gap 16.8 (5-15) H 07/08/19 05:25 BUN 24 mg/dL (7-18) H 07/08/19 05:25 Creatinine 1.0 mg/dL (0.7-1.3) 07/08/19 05:25 Est Cr Clr Drug Dosing 72.79 mL/min 07/08/19 05:25 Estimated GFR (MDRD) > 60 mL/min (>60) 07/08/19 05:25 BUN/Creatinine Ratio 24.0 (14-18) H 07/08/19 05:25 Glucose 114 mg/dL (74-106) H 07/08/19 05:25 Lactic Acid 1.3 mmol/L (0.4-2.0) 07/07/19 16:35 Calcium 9.0 mg/dL (8.5-10.1) 07/08/19 05:25 Total Bilirubin 0.8 mg/dL (0.2-1.0) 07/07/19 08:20 AST 18 U/L (15-37) 07/07/19 08:20 ALT 27 U/L (16-63) 07/07/19 08:20 Alkaline Phosphatase 74 U/L (46-116) 07/07/19 08:20 C-Reactive Protein <0.2 mg/dL (<1.0) 07/07/19 08:20 Total Protein 8.3 g/dl (6.4-8.2) H 07/07/19 08:20 Albumin 3.4 g/dl (3.4-5.0) 07/07/19 08:20 Globulin 4.9 gm/dL 07/07/19 08:20 Albumin/Globulin Ratio 0.7 (1-2) L 07/07/19 08:20 Lipase 43 U/L (73-393) L 07/07/19 08:20 Urine Opiates Screen Presumptive positive (SHLINV=581) H 07/07/19 16:20 Ur Buprenorphine Scrn Negative (CUTOFF=10) 07/07/19 16:20 Ur Oxycodone Screen Negative (OPV3TH=941) 07/07/19 16:20 Urine Methadone Screen Negative (JJI3PT=189) 07/07/19 16:20 Ur Propoxyphene Screen Negative (QPOFQM=775) 07/07/19 16:20 Ur Barbiturates Screen Negative (IMSPXF=319) 07/07/19 16:20 Ur Tricyclics Screen Negative (GPZYOS=796) 07/07/19 16:20 Ur Phencyclidine Scrn Negative (CUTOFF=25) 07/07/19 16:20 Ur Amphetamine Screen Presumptive positive (WDBQYY=806) H 07/07/19 16:20 U Methamphetamines Scrn Presumptive positive (BDVIDN=773) H 07/07/19 16:20 U Benzodiazepines Scrn Negative (UUPGTS=678) 07/07/19 16:20 U Cocaine Metab Screen Negative (TWIZCO=229) 07/07/19 16:20 U Marijuana (THC) Screen Presumptive positive (CUTOFF=50) H 07/07/19 16:20 - Allergies Allergies/Adverse Reactions: Allergies Allergy/AdvReac Type Severity Reaction Status Date / Time No Known Allergies Allergy Verified 07/07/19 07:45 - Acknowledgements Anesthesia Type Planned: MAC Pt an Appropriate Candidate for the Planned Anesthesia: Yes Alternatives and Risks of Anesthesia Discussed w Pt/Guardian: Yes Pt/Guardian Understands and Agrees with Anesthesia Plan: Yes PreAnesthesia Questionnaire - Past Health History Medical/Surgical History: Denies Medical/Surgical History - Infectious Disease History Infectious Disease History: Reports: Mumps - SUBSTANCE USE Smoking Status *Q: Current Every Day Smoker Tobacco Use Within Last Twelve Months: Cigarettes Second Hand Smoke Exposure: No Recreational Drug Use History: No - HOME MEDS Home Medications: Home Meds Aspirin 81 mg PO DAILY 07/07/19 [History] Ibuprofen [Advil] 200 mg PO DAILY PRN 07/07/19 [History] - CURRENT (IN HOUSE) MEDS Current Meds: Current Medications Benzocaine (Hurricaine 20% Orwell) 0 ml MUCMEM Q2H PRN PRN Reason: sore throat Last Admin: 07/07/19 16:11 Dose: 1 applic Diphenhydramine HCl (Benadryl) 25 mg IVPUSH Q12HR PRN PRN Reason: Insomnia Heparin Sodium (Porcine) (Heparin Sodium) 5,000 units SUBCUT Q8H MINDY Last Admin: 07/08/19 04:51 Dose: Not Given Piperacillin Sod/Tazobactam (Sod 4.5 gm/ Sodium Chloride) 100 mls @ 25 mls/hr IV Q8H MINDY Last Admin: 07/08/19 04:51 Dose: 25 mls/hr Potassium Chloride/Dextrose/Sod Cl (D5 1/2 Ns W/ 20 Meq/L Kcl) 1,000 mls @ 75 mls/hr IV ASDIRECTED MINDY Last Admin: 07/08/19 08:45 Dose: 75 mls/hr Ketorolac Tromethamine (Toradol) 30 mg IVPUSH Q8H PRN PRN Reason: Pain Last Admin: 07/08/19 04:57 Dose: 30 mg Sodium Chloride (Saline Flush) 10 ml FLUSH ASDIRECTED PRN PRN Reason: Keep Vein Open Last Admin: 07/07/19 08:20 Dose: 10 ml Sodium Chloride (Saline Flush) 10 ml FLUSH ONETIME PRN PRN Reason: IV FLUSH Last Admin: 07/07/19 10:56 Dose: 10 ml Discontinued Medications Acetaminophen (Tylenol) 975 mg PO NOW ONE Stop: 07/07/19 11:50 Last Admin: 07/07/19 11:59 Dose: 975 mg Diatrizoate Meglum/Diatrizoate Sod (Gastrografin 37%) 120 ml PO ONETIME ONE Stop: 07/07/19 09:53 Last Admin: 07/07/19 15:21 Dose: Not Given Famotidine (Pepcid) 20 mg IVPUSH ONETIME ONE Stop: 07/07/19 08:14 Last Admin: 07/07/19 08:25 Dose: 20 mg Hydromorphone HCl (Dilaudid) 0.5 mg IVPUSH ONETIME ONE Stop: 07/07/19 08:15 Last Admin: 07/07/19 08:28 Dose: 0.5 mg Hydromorphone HCl (Dilaudid) 0.5 mg IVPUSH ONETIME ONE Stop: 07/07/19 09:41 Last Admin: 07/07/19 09:47 Dose: 0.5 mg Hydromorphone HCl (Dilaudid) 0.5 mg IVPUSH ONETIME ONE Stop: 07/07/19 11:30 Last Admin: 07/07/19 11:35 Dose: 0.5 mg Sodium Chloride (Normal Saline) 1,000 mls @ 999 mls/hr IV ONETIME MINDY Last Admin: 07/07/19 08:30 Dose: 999 mls/hr Lactated Ringer's (Ringers, Lactated) 1,000 mls @ 999 mls/hr IV .BOLUS ONE Stop: 07/07/19 11:08 Last Admin: 07/07/19 10:17 Dose: 999 mls/hr Lactated Ringer's (Ringers, Lactated) 1,000 mls @ 150 mls/hr IV ASDIRECTED [facility] Last Admin: 07/07/19 21:13 Dose: 150 mls/hr Piperacillin Sod/Tazobactam (Sod 4.5 gm/ Sodium Chloride) 100 mls @ 200 mls/hr IV ONETIME ONE Stop: 07/07/19 13:29 Last Admin: 07/07/19 14:16 Dose: 200 mls/hr Iopamidol (Isovue-300 (61%)) 100 ml IVPUSH ONETIME ONE Stop: 07/07/19 09:53 Last Admin: 07/07/19 10:56 Dose: 100 ml Metoclopramide HCl (Reglan) 5 mg IVPUSH ONETIME ONE Stop: 07/07/19 09:42 Last Admin: 07/07/19 09:45 Dose: 5 mg Ondansetron HCl (Zofran) 4 mg IVPUSH ONETIME ONE Stop: 07/07/19 08:14 Last Admin: 07/07/19 08:23 Dose: 4 mg
[2019-07-08] MEDS ORDERED: Propofol 200 MG/20 ML SDV ONE (12:29)
[2019-07-08] MEDS ORDERED: Lidocaine 1% 4 ML ONE (12:31)
[2019-07-08] MEDS ORDERED: fentaNYL 100 MCG/2 ML SDV ONE (12:32)
[2019-07-08] MEDS ORDERED: Lactated Ringers 1,000 ML ONE (12:37)
--- NOTE | 2019-07-08 13:19 | PCM.PRNOTE ---
- Free Text/Narrative Note: Date: 07/08/2019 Procedure: diagnostic colonoscopy Indication: obstructive symptoms with transition point noted on CT scan at distal transverse colon Endoscopist: Rodney Ely MD Findings: no obstructing lesion identified Detailed Report: Time out was performed and the patient was positioned in left lateral decubitus position. Monitored anesthesia care was initiated. A lubricated colonoscope was inserted at the anus and advanced as far as the cecum. There was abundant stool coating the mucosa and lighting was poor, but no gross obstructing lesion was noted. Air was suctioned on withdrawal of the scope. The patient tolerated the procedure well. Rodney Ely MD General Surgery
--- NOTE | 2019-07-08 13:41 | PCM48HPAN ---
Post Anesthesia Note - EVALUATION WITHIN 48HRS OF ANESTHETIC Vital Signs in Normal Range: Yes Patient Participated in Evaluation: Yes Respiratory Function Stable: Yes Airway Patent: Yes Cardiovascular Function Stable: Yes Hydration Status Stable: Yes Pain Control Satisfactory: Yes Nausea and Vomiting Control Satisfactory: Yes Mental Status Recovered: Yes Vital Signs: POST PROCEDURE VITAL SIGNS BP: 119/73, HR: 67, RR: 20, SpO2: 93%, T: 98F Last Vital Signs Temp 97.7 F 07/08/19 11:37 Pulse 75 07/08/19 11:37 Resp 16 07/08/19 11:37 BP 120/86 07/08/19 11:37 Pulse Ox 95 07/08/19 11:37
[2019-07-08] MEDS: diphenhydrAMINE 50 MG/ML SDV IVPUSH PRN (20:32)
[2019-07-09] MEDS: Piperacillin/Tazobactam 4.5 GM in Sodium Chloride 0.9% 100 ML IV SCH ×2 (05:10→12:06)
[2019-07-09] MEDS: Heparin Sodium 5,000 Units/ML Vial SUBCUT SCH ×3 (05:12→20:56)
[2019-07-09] MEDS ORDERED: Ondansetron 4 MG in Sodium Chloride 0.9% 50 ML IV PRN (14:34)
[2019-07-09] MEDS ORDERED: Promethazine 12.5 MG in Sodium Chloride 0.9% 50 ML IV PRN (14:35)
[2019-07-09] MEDS ORDERED: Simethicone 80 MG Tab.Chew PO PRN (14:36)
[2019-07-09] MEDS ORDERED: Ondansetron 4 MG/2 ML SDV IVPUSH PRN (14:40)
--- NOTE | 2019-07-09 14:42 | PCM.SN ---
- Free Text/Narrative Note: Hospital day 3- continues to improve. Diagnostic colonoscopy shows no obstructing lesion in the colon. S: mild abdominal pain rated at 3/10. Diarrhea. Minimal PO intake. O: AF-VSS abdomen distended and tympanitic, mildly tender A: Continued improvement for what seems like possible drug-induced bowel ischemia vs infectious gastroenteritis. P: -regular diet as tolerated -stop antibiotics; blood cultures no growth in 48 hours -continue maintenance IV fluids -OOB -tylenol prn pain. benadryl prn insomnia. simethicone, zofran prn -reassess tomorrow; if tolerating diet and pain manageable, plan for discharge
[2019-07-09] MEDS: D5 1/2 NS w/ 20 mEq/L KCl 1,000 ML IV SCH (21:00)
[2019-07-09] MEDS: diphenhydrAMINE 50 MG/ML SDV IVPUSH PRN (21:12)
[2019-07-10] MEDS: Heparin Sodium 5,000 Units/ML Vial SUBCUT SCH ×2 (05:40→12:01)
--- NOTE | 2019-07-10 08:59 | PCM.SN ---
- Free Text/Narrative Note: Subjective: No major interval change. Minimal PO intake, continued distention and mild abdominal pain. Reports significant diarrhea. Wishes for transfer to another hospital due to perceived lack of progress. Objective: Afebrile, VSS abdomen distended, tympanitic, soft, with moderate diffuse tenderness Assessment: abdominal pain and distention in patient who presented with fever and leukocytosis which have since resolved. Now off broad spectrum antibiotics- blood cultures showed no growth. Colonoscopy shows no obstructing lesion. Reports diarrhea, nausea, decreased appetite. Clinical picture looks more like gastroenteritis at this point. Plan: Repeat CBC Stool culture, C difficile assay, stool ova and parasite testing Requested medicine consult, Dr. Ivan will see the patient today
[2019-07-10] MEDS: Acetaminophen 325 MG Tab PO PRN (12:00)
[2019-07-10] MEDS: D5 1/2 NS w/ 20 mEq/L KCl 1,000 ML IV SCH (12:06)
--- NOTE | 2019-07-10 12:21 | PCM.CONS ---
H&P History of Present Illness - General Date of Service: 07/10/19 Admit Problem/Dx: Admission Diagnosis/Problem Admission Diagnosis/Problem Acute abdomen - History of Present Illness Initial Comments - Free Text/Narative: 59-year-old male presenting to the emergency department on July 06 after waking up at 0030 hours on July 04 with diarrhea and vomiting. He states that Saturday night he ate mac & cheese and man which. Patient continued to have pain on Saturday and ultimately the pain was so severe that he came to the emergency department. At that time he states his pain was a 10 out of 10, but now is mostly 3-4 out of 10. He does have episodes of sharp pain. Patient had mild diarrhea a couple of times on Saturday. CT of the abdomen and pelvis done on 07/07/2019 in the emergency department showed: 1. Gas dilated small bowel also containing fluid. Slightly dilated air-filled colon within the right transverse regions. Descending colon is collapsed. Etiology for the transitional point within splenic flexure not visualized. This bowel gas pattern is confusing and diffuse dilatation from mesenteric ischemia is possible but no correlating etiology is seen within the proximal superior mesenteric or celiac is seen. Developing distal small bowel or colon obstruction is possible. Patient was admitted to surgical service. Colonoscopy was performed on 07/08/2019 which showed no obstructing lesion. There was abundant stool coating the mucosa and lighting was poor, but no gross obstructing lesion was noted. Patient has had some improvement, but it has developed worsening diarrhea since colonoscopy. Medicine was consulted to give opinion on treatment. Lower Abdominal Pain Score (Numeric/FACES): 3 - Related Data Allergies/Adverse Reactions: Allergies Allergy/AdvReac Type Severity Reaction Status Date / Time No Known Allergies Allergy Verified 07/07/19 07:45 Home Medications: Home Meds Aspirin 81 mg PO DAILY 07/07/19 [History] Ibuprofen [Advil] 200 mg PO DAILY PRN 07/07/19 [History] Past Medical History - Past Health History Medical/Surgical History: Denies Medical/Surgical History - Infectious Disease History Infectious Disease History: Reports: Mumps Social & Family History - Family History Family Medical History: Noncontributory - Tobacco Use Smoking Status *Q: Current Every Day Smoker Years of Tobacco use: 25 Packs/Tins Daily: 0.2 Used Tobacco, but Quit: No Second Hand Smoke Exposure: No - Caffeine Use Caffeine Use: Reports: Coffee - Recreational Drug Use Recreational Drug Use: No H&P Review of Systems - Review of Systems: Review Of Systems: Comprehensive ROS is negative, except as noted in HPI. Exam - Exam Exam: See Below - Vital Signs Vital Signs: Last Vital Signs Temp 98.1 F 07/10/19 07:46 Pulse 61 07/10/19 07:46 Resp 16 07/10/19 07:46 BP 122/74 07/10/19 07:46 Pulse Ox 95 07/10/19 07:46 Weight: 139 lb 3.2 oz - Exam General: Alert, Oriented, 4 HEENT: Conjunctiva Clear, Mucosa Moist & [place] Neck: Supple, Trachea Midline, 2 Lungs: Clear to Auscultation, Normal Respiratory Effort GI/Abdominal Exam: Normal Bowel Sounds, Soft, Distended (Tympanic), Guarding ( Right lower quadrant), Tender (Right lower quadrant and periumbilical). No: Rigid, Rebound Extremities: Normal Inspection, Normal Range of Motion, Non-Tender, No Pedal Edema, Normal Capillary Refill Peripheral Pulses: 2+: Posterior Tibial (L), Posterior Tibial (R), Dorsalis Pedis (L), Dorsalis Pedis (R) Neuro Extensive - Mental Status: Alert, Oriented x3, Normal Mood/Affect, Normal Cognition Neuro Extensive - Motor, Sensory, Reflexes: CN II-XII Intact, Normal Gait, Normal Reflexes - Patient Data Lab Results Last 24 hrs: Laboratory Results - last 24 hr 07/10/19 07/10/19 Range/Units 09:15 10:25 WBC 10.94 H (4.23-9.07) K/mm3 RBC 4.03 L (4.63-6.08) M/mm3 Hgb 12.3 L (13.7-17.5) gm/dl Hct 36.7 L (40.1-51.0) % MCV 91.1 (79.0-92.2) fl MCH 30.5 (25.7-32.2) pg MCHC 33.5 (32.2-35.5) g/dl RDW Std Deviation 46.3 H (35.1-43.9) fL Plt Count 302 (163-337) K/mm3 MPV 8.6 L (9.4-12.3) fl Neut % (Auto) 73.5 H (34.0-67.9) % Lymph % (Auto) 9.5 L (21.8-53.1) % [place] % (Auto) 12.3 H (5.3-12.2) % Eos % (Auto) 3.5 (0.8-7.0) Baso % (Auto) 0.7 (0.1-1.2) % Neut # (Auto) 8.04 H (1.78-5.38) K/mm3 Lymph # (Auto) 1.04 L (1.32-3.57) K/mm3 [place] # (Auto) 1.35 H (0.30-0.82) K/mm3 Eos # (Auto) 0.38 (0.04-0.54) K/mm3 Baso # (Auto) 0.08 (0.01-0.08) K/mm3 C.difficile [id number] Presumptive negative C. difficile Tox (PCR) Negative Result Diagrams: 07/10/19 10:25 07/08/19 05:25 Marvin Results Last 24 hrs: Microbiology 07/07/19 13:45 Aerobic Blood Culture - Preliminary Blood - Venous - Lab Draw NO GROWTH AFTER 2 DAYS Anaerobic Blood Culture - Preliminary NO GROWTH AFTER 2 DAYS 07/07/19 13:35 Aerobic Blood Culture - Preliminary Blood - Venous NO GROWTH AFTER 2 DAYS Anaerobic Blood Culture - Preliminary NO GROWTH AFTER 2 DAYS Sepsis Event Note - Evaluation Sepsis Screening Result: No Definite Risk - Focused Exam Vital Signs: Vital Signs Temp Pulse Resp BP Pulse Ox 07/10/19 07:46 98.1 F 61 16 122/74 95 07/10/19 04:08 97.9 F 56 L 20 132/76 95 07/10/19 01:35 98.2 F 56 L 16 127/81 93 L Date Exam was Performed: 07/10/19 Time Exam was Performed: 13:11 Consult PN Assessment/Plan Procedures: Procedures EMERGENCY DEPT VISIT (10/20/16) IMMUNIZATION ADMIN (10/20/16) RPR S/N/AX/GEN/TRNK 2.5CM/< (10/20/16) TDAP VACCINE 7 YRS/> IM (10/20/16) X-RAY EXAM OF HAND (10/20/16) Problem List Initiated/Reviewed/Updated: Yes Plan: Assessment 59-year-old male with gastroenteritis type symptoms starting on Saturday morning presented with abdominal pain and mild diarrhea. Patient has had improving symptoms, but has continued pain and diarrhea since colonoscopy. Patient was on Zosyn for 2 days. C. difficile testing is negative. He was able to eat crackers and soup with strawberries today. Likely diagnoses infectious diarrhea. In the differential other etiologies include inflammatory bowel disease and mesenteric ischemia. Recommendation Trial of Carafate. Follow stool cultures Empirically start azithromycin or fluoroquinolone Agree with use of nonnarcotic pain medication. Agree with use of simethicone. Follow CBC and CMP. Thank you for allowing me to see this patient and participate in his care.
[2019-07-10] MEDS ORDERED: Azithromycin 250 MG Tab PO SCH (12:30)
[2019-07-10] MEDS: Sucralfate 1 GM Tab PO SCH ×4 (13:30→23:25)
[2019-07-10] MEDS: Ibuprofen 400 MG Tab PO PRN (20:08)
[2019-07-10] MEDS: Simethicone 80 MG Tab.Chew PO SCH ×3 (20:10→23:26)
[2019-07-10] MEDS: Zolpidem 5 MG Tab PO PRN (20:11)
[2019-07-11] MEDS: D5 1/2 NS w/ 20 mEq/L KCl 1,000 ML IV SCH ×2 (01:37→16:52)
[2019-07-11] MEDS: Simethicone 80 MG Tab.Chew PO SCH ×5 (01:37→15:45)
[2019-07-11] MEDS: Sucralfate 1 GM Tab PO SCH ×4 (06:46→21:22)
--- NOTE | 2019-07-11 08:49 | PCM.SN ---
- Free Text/Narrative Note: S: no acute events. pain is mild, same as yesterday. Reports ongoing diarrhea and one episode of vomiting this morning. 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 Rising white count is concerning as well. P: Switch back to zosyn for now as patient is not tolerating PO well. Abdominal plain films to assess for colonic distention/pseudo-obstruction- possible neostigmine later today. If vomiting persists will discuss replacement of NG tube for decompression with patient.
[2019-07-11] MEDS ORDERED: Piperacillin/Tazobactam 4.5 GM in Sodium Chloride 0.9% 100 ML IV ONE (09:00)
[2019-07-11] MEDS ORDERED: Simethicone 80 MG Tab.Chew PO PRN (15:47)
[2019-07-11] MEDS ORDERED: Iopamidol 612 MG/ML 100 ML Bottle IVPUSH ONE (16:35)
[2019-07-11] MEDS ORDERED: Diatrizoate Meglumine/Diatrizoate Sodium 37% 120 ML Bottle PO ONE (16:35)
[2019-07-11] MEDS ORDERED: Sodium Chloride 0.9% 10 ML Syringe FLUSH PRN (16:35)
[2019-07-11] MEDS: Piperacillin/Tazobactam 4.5 GM in Sodium Chloride 0.9% 100 ML IV SCH (16:45)
[2019-07-11] MEDS: Ibuprofen 400 MG Tab PO PRN (21:22)
[2019-07-11] MEDS: Zolpidem 5 MG Tab PO PRN (21:22)
[2019-07-12] MEDS: Piperacillin/Tazobactam 4.5 GM in Sodium Chloride 0.9% 100 ML IV SCH ×2 (00:12→11:02)
[2019-07-12] MEDS ORDERED: Iopamidol 612 MG/ML 100 ML Bottle IVPUSH ONE (08:00)
[2019-07-12] MEDS ORDERED: Sodium Chloride 0.9% 10 ML Syringe FLUSH PRN (08:09)
[2019-07-12] MEDS ORDERED: Sodium Chloride 0.9% 1,000 ML IV ONE (08:26)
[2019-07-12] MEDS ORDERED: Magnesium Sulfate/Water 4 GM in Premix Bag 1 BAG IV ONE (08:41)
--- NOTE | 2019-07-12 09:13 | CT ---
CT abdomen and pelvis Technique: Multiple axial sections were obtained from above the dome of the diaphragm inferiorly through the pubic symphysis. Intravenous contrast was utilized. Oral contrast is seen. Oral contrast remains mostly within proximal small bowel. Delayed images were also obtained through the bladder. Comparison: Previous CT abdomen and pelvis exam of 07/07/19. Findings: Gas and fluid-filled dilated small bowel is noted. Findings are fairly stable from previous exam. Findings suggest the possibility of distal small bowel obstruction. Etiology otherwise not visualized. Visualized lung bases shows mild atelectasis posteriorly on the left side. Liver contains no focal abnormality. Spleen appears within normal limits. Adrenal glands show no nodule. Pancreas is within normal limits. Kidneys show symmetric contrast enhancement without hydronephrosis or mass. Gallbladder contains no calcified gallstones. Aorta shows no aneurysm. No retroperitoneal adenopathy or mesenteric abnormalities are seen. No pelvic mass or adenopathy is seen. No free fluid or inflammatory change is seen. Appendix is not visualized with certainty. Small amount of ascites is seen within the abdomen and pelvis. Delayed images shows contrast within the distal ureters and within the bladder. Bone window settings were reviewed. Slight degenerative change scattered within the spine most prominent at L5-S1. No acute osseous finding is seen. Impression: 1. Gas and fluid-filled dilated small bowel. Findings most likely representing distal small bowel obstruction. Findings are fairly stable from previous exam. Etiology for this finding is not appreciated on the CT study. 2. Small amount of ascites. 3. Mild left basilar atelectasis. Diagnostic code #3 Study was dictated in MDT
[2019-07-12] MEDS: Sucralfate 1 GM Tab PO SCH ×3 (09:41→12:34)
--- NOTE | 2019-07-12 10:29 | PCM.DCSUM1 ---
Discharge Summary - Hospital Course Free Text/Narrative:: Hospital Course: 59 yo man presented to emergency room 07/07/2019 with fever, leukocytosis and abdominal pain and distention. He reported associated vomiting and diarrhea. CT scan showed dilation of large and small bowel with question of transition point at the distal transverse colon. The patient was hemodynamically stable and felt better with NG decompression. Zosyn was started after obtaining blood cultures, and within 12 hours leukocytosis resolved and patient was feeling better. Of note, his urine toxicology was positive for methamphetamine and THC. This raised concern for drug-induced bowel ischemia/ileus. Due to concern for obstructing colon lesion, a diagnostic colonoscopy was performed. Though prep was poor, the endoscopy effectively ruled out an obstructing lesion. Blood and stool cultures were negative and antibiotics stopped. NG output decreased and the patient had diarrhea and flatus, so the tube was removed. Over the next few days, he remained distended and uncomfortable. The patient was often frustrated with care and at least once demanded to leave against medical advice. He vomited one time and continued to have diarrhea and flatus, with unchanged abdominal distention and mild tenderness. His WBC slowly siri back up to over 13 ,000, and zosyn was restarted. The following day WBC was down to around 12,000. At this point, a repeat CT scan was ordered due to the patient's failure to progress (07/12/2019). This time, the scan showed decompressed ileum with bowel wall thickening in the pelvis, indicating more of an obstructive scenario rather than ongoing ileus. Exploratory laparotomy was discussed with the patient , and though he agreed to surgery, he expressed a lack of confidence and discomfort with continuing his care in [place] and requested his operation be done in [place]. On further discussion with the team in [place], there is concern that the patient may have Crohn's ileitis. The hospitalist has thus accepted the patient in transfer as there is no immediate plan for surgery, and the patient will be evaluated by the gastroenterology service. - Discharge Data Discharge Date: 07/12/19 Discharge Disposition: DC/Tfer to Acute Hospital 02 Condition: Good - Referral to Home Health Primary Care Physician: Ezequiel Dias MD - Patient Instructions Diet: NPO - Discharge Plan Home Medications: Home Meds Aspirin 81 mg PO DAILY 07/07/19 [History] Ibuprofen [Advil] 200 mg PO DAILY PRN 07/07/19 [History] Patient Handouts: Steps to Quit Smoking Referrals: Ezequiel Dias MD [Primary Care Provider] - - Discharge Summary/Plan Comment DC Time >30 min.: Yes Discharge Summary/Plan Comment: I discussed this case with the on-call hospitalist and surgeon at [facility] in [place], and the patient will be transferred with plan for exploratory laparotomy as he does not wish to have this done at [facility] in [place]. - Patient Data Vitals - Most Recent: Last Vital Signs Temp 36.5 C 07/12/19 09:53 Pulse 56 L 07/12/19 09:53 Resp 18 07/12/19 09:53 BP 160/73 H 07/12/19 09:53 Pulse Ox 93 L 07/12/19 09:53 Weight - Most Recent: 62.959 kg I&O - Last 24 hours: Intake & Output 07/11/19 07/12/19 07/12/19 22:59 06:59 14:59 Intake Total 1384 1555 Balance 1384 1555 Lab Results - Last 24 hrs: Laboratory Results - last 24 hr 07/12/19 07/12/19 07/12/19 Range/Units 04:55 04:55 04:55 WBC 12.63 H (4.23-9.07) K/mm3 RBC 4.73 (4.63-6.08) M/mm3 Hgb 14.4 D (13.7-17.5) gm/dl Hct 42.6 (40.1-51.0) % MCV 90.1 (79.0-92.2) fl MCH 30.4 (25.7-32.2) pg MCHC 33.8 (32.2-35.5) g/dl RDW Std Deviation 46.9 H (35.1-43.9) fL Plt Count 391 H (163-337) K/mm3 MPV 9.2 L (9.4-12.3) fl Neut % (Auto) 61.5 (34.0-67.9) % Lymph % (Auto) 21.1 L (21.8-53.1) % [place] % (Auto) 12.0 (5.3-12.2) % Eos % (Auto) 3.7 (0.8-7.0) Baso % (Auto) 0.7 (0.1-1.2) % Neut # (Auto) 7.78 H (1.78-5.38) K/mm3 Lymph # (Auto) 2.66 (1.32-3.57) K/mm3 [place] # (Auto) 1.51 H (0.30-0.82) K/mm3 Eos # (Auto) 0.47 (0.04-0.54) K/mm3 Baso # (Auto) 0.09 H (0.01-0.08) K/mm3 Manual Slide Review Abnormal smear Sodium 136 (136-145) mEq/L Potassium 3.7 (3.5-5.1) mEq/L Chloride 99 (98-107) mEq/L Carbon Dioxide 26 (21-32) mEq/L Anion Gap 14.7 (5-15) BUN 11 (7-18) mg/dL Creatinine 0.9 (0.7-1.3) mg/dL Est Cr Clr Drug Dosing 80.64 mL/min Estimated GFR (MDRD) > 60 (>60) mL/min BUN/Creatinine Ratio 12.2 L (14-18) Glucose 93 (74-106) mg/dL Calcium 9.0 (8.5-10.1) mg/dL Magnesium 1.7 L (1.8-2.4) mg/dl LAUREL Results - Last 24 hrs: Microbiology 07/10/19 09:15 Cryptosporidium/Giardia - Final Stool / Feces - Stool, Liquid 07/07/19 13:45 Aerobic Blood Culture - Preliminary Blood - Venous - Lab Draw NO GROWTH AFTER 4 DAYS Anaerobic Blood Culture - Preliminary NO GROWTH AFTER 4 DAYS 07/07/19 13:35 Aerobic Blood Culture - Preliminary Blood - Venous NO GROWTH AFTER 4 DAYS Anaerobic Blood Culture - Preliminary NO GROWTH AFTER 4 DAYS 07/10/19 09:15 Stool Culture - Preliminary Stool / Feces Shiga Toxin I & II - Final Med Orders - Current: Current Medications Acetaminophen (Tylenol) 650 mg PO Q6H PRN PRN Reason: Pain Last Admin: 07/10/19 12:00 Dose: 650 mg Benzocaine (Hurricaine 20% [place]) 0 ml MUCMEM Q2H PRN PRN Reason: sore throat Last Admin: 07/07/19 16:11 Dose: 1 applic Diphenhydramine HCl (Benadryl) 25 mg IVPUSH Q12HR PRN PRN Reason: Insomnia Last Admin: 07/09/19 21:12 Dose: 25 mg Potassium Chloride/Dextrose/Sod Cl (D5 1/2 Ns W/ 20 Meq/L Kcl) 1,000 mls @ 75 mls/hr IV ASDIRECTED [facility] Last Admin: 07/11/19 16:52 Dose: 75 mls/hr Promethazine HCl 12.5 mg/ (Sodium Chloride) 50.5 mls @ 100 mls/hr IV Q6H PRN PRN Reason: Nausea Piperacillin Sod/Tazobactam (Sod 4.5 gm/ Sodium Chloride) 100 mls @ 25 mls/hr IV Q8H [facility] Last Admin: 07/12/19 00:12 Dose: 25 mls/hr Magnesium Sulfate 4 gm/ Premix 50 mls @ 12.5 mls/hr IV ONETIME ONE Stop: 07/12/19 12:40 Ibuprofen (Motrin) 400 mg PO Q6H PRN PRN Reason: Pain Last Admin: 07/11/19 21:22 Dose: 400 mg Ondansetron HCl (Zofran) 4 mg IVPUSH Q8H PRN PRN Reason: NAUSEA Simethicone (Simethicone) 80 mg PO Q4H PRN PRN Reason: Indigestion Sodium Chloride (Saline Flush) 10 ml FLUSH ASDIRECTED PRN PRN Reason: Keep Vein Open Last Admin: 07/07/19 08:20 Dose: 10 ml Sodium Chloride (Saline Flush) 10 ml FLUSH ONETIME PRN PRN Reason: IV FLUSH Last Admin: 07/07/19 10:56 Dose: 10 ml Sodium Chloride (Saline Flush) 10 ml FLUSH ONETIME PRN PRN Reason: IV FLUSH Sodium Chloride (Saline Flush) 10 ml FLUSH ONETIME PRN PRN Reason: Keep Vein Open Last Admin: 07/12/19 08:30 Dose: 10 ml Sucralfate (Carafate) 1 gm PO QIDACANDBED [facility] Last Admin: 07/12/19 09:41 Dose: Not Given Zolpidem Tartrate (Ambien) 5 mg PO BEDTIME PRN PRN Reason: Insomnia Last Admin: 07/11/19 21:22 Dose: 5 mg Discontinued Medications Acetaminophen (Tylenol) 975 mg PO NOW ONE Stop: 07/07/19 11:50 Last Admin: 07/07/19 11:59 Dose: 975 mg Azithromycin (Zithromax) 250 mg PO DAILY [facility] Last Admin: 07/10/19 13:30 Dose: 250 mg Diatrizoate Meglum/Diatrizoate Sod (Gastrografin 37%) 120 ml PO ONETIME ONE Stop: 07/07/19 09:53 Last Admin: 07/07/19 15:21 Dose: Not Given Diatrizoate Meglum/Diatrizoate Sod (Gastrografin 37%) 120 ml PO ONETIME ONE Stop: 07/11/19 16:36 Last Admin: 07/12/19 08:28 Dose: 90 ml Famotidine (Pepcid) 20 mg IVPUSH ONETIME ONE Stop: 07/07/19 08:14 Last Admin: 07/07/19 08:25 Dose: 20 mg Fentanyl (Sublimaze) Confirm Administered Dose 100 mcg .ROUTE .STK-MED ONE Stop: 07/08/19 12:33 Heparin Sodium (Porcine) (Heparin Sodium) 5,000 units SUBCUT Q8H [facility] Last Admin: 07/10/19 12:01 Dose: 5,000 units Hydromorphone HCl (Dilaudid) 0.5 mg IVPUSH ONETIME ONE Stop: 07/07/19 08:15 Last Admin: 07/07/19 08:28 Dose: 0.5 mg Hydromorphone HCl (Dilaudid) 0.5 mg IVPUSH ONETIME ONE Stop: 07/07/19 09:41 Last Admin: 07/07/19 09:47 Dose: 0.5 mg Hydromorphone HCl (Dilaudid) 0.5 mg IVPUSH ONETIME ONE Stop: 07/07/19 11:30 Last Admin: 07/07/19 11:35 Dose: 0.5 mg Sodium Chloride (Normal Saline) 1,000 mls @ 999 mls/hr IV ONETIME [facility] Last Admin: 07/07/19 08:30 Dose: 999 mls/hr Lactated Ringer's (Ringers, Lactated) 1,000 mls @ 999 mls/hr IV .BOLUS ONE Stop: 07/07/19 11:08 Last Admin: 07/07/19 10:17 Dose: 999 mls/hr Lactated Ringer's (Ringers, Lactated) 1,000 mls @ 150 mls/hr IV ASDIRECTED [facility] Last Admin: 07/07/19 21:13 Dose: 150 mls/hr Piperacillin Sod/Tazobactam (Sod 4.5 gm/ Sodium Chloride) 100 mls @ 25 mls/hr IV Q8H [facility] Last Admin: 07/09/19 12:06 Dose: 25 mls/hr Piperacillin Sod/Tazobactam (Sod 4.5 gm/ Sodium Chloride) 100 mls @ 200 mls/hr IV ONETIME ONE Stop: 07/07/19 13:29 Last Admin: 07/07/19 14:16 Dose: 200 mls/hr Lidocaine HCl (Xylocaine-Mpf 1%) Confirm Administered Dose 4 mls @ as directed .ROUTE .STK-MED ONE Stop: 07/08/19 12:32 Lactated Ringer's (Ringers, Lactated) Confirm Administered Dose 1,000 mls @ as directed .ROUTE .STK-MED ONE Stop: 07/08/19 12:38 Ondansetron HCl 4 mg/ Sodium (Chloride) 52 mls @ 100 mls/hr IV Q8H PRN PRN Reason: Nausea Piperacillin Sod/Tazobactam (Sod 4.5 gm/ Sodium Chloride) 100 mls @ 200 mls/hr IV ONETIME ONE Stop: 07/11/19 09:29 Last Admin: 07/11/19 09:27 Dose: 200 mls/hr Magnesium Sulfate/Dextrose 1 (gm/ Premix) 100 mls @ 100 mls/hr IV Q1H [facility] Stop: 07/12/19 12:29 Sodium Chloride (Normal Saline) 1,000 mls @ 1,000 mls/hr IV ONETIME ONE Stop: 07/12/19 09:25 Last Admin: 07/12/19 09:41 Dose: 1,000 mls/hr Iopamidol (Isovue-300 (61%)) 100 ml IVPUSH ONETIME ONE Stop: 07/07/19 09:53 Last Admin: 07/07/19 10:56 Dose: 100 ml Iopamidol (Isovue-300 (61%)) 100 ml IVPUSH ONETIME ONE Stop: 07/11/19 16:36 Last Admin: 07/12/19 07:30 Dose: Not Given Iopamidol (Isovue-300 (61%)) 100 ml IVPUSH ONETIME ONE Stop: 07/12/19 08:01 Last Admin: 07/12/19 08:28 Dose: 100 ml Ketorolac Tromethamine (Toradol) 30 mg IVPUSH Q8H PRN PRN Reason: Pain Last Admin: 07/08/19 20:32 Dose: 30 mg Metoclopramide HCl (Reglan) 5 mg IVPUSH ONETIME ONE Stop: 07/07/19 09:42 Last Admin: 07/07/19 09:45 Dose: 5 mg Ondansetron HCl (Zofran) 4 mg IVPUSH ONETIME ONE Stop: 07/07/19 08:14 Last Admin: 07/07/19 08:23 Dose: 4 mg Propofol (Diprivan 20 Ml) Confirm Administered Dose 400 mg .ROUTE .STK-MED ONE Stop: 07/08/19 12:30 Simethicone (Simethicone) 80 mg PO Q4H PRN PRN Reason: Gas Last Admin: 07/10/19 11:58 Dose: 80 mg Simethicone (Simethicone) 80 mg PO Q4H [facility] Last Admin: 07/11/19 15:45 Dose: Not Given
--- NOTE | 2019-07-12 10:49 | CR ---
Abdomen: Supine and upright views the abdomen were obtained. Comparison: Prior abdominal x-ray of 07/07/19. Gas dilated small bowel is seen containing multiple air-fluid levels. Findings radiographically have the appearance of distal small bowel obstruction. Findings are similar to previous exam. No free air is seen. Minimal left basilar atelectasis is noted. Bony structures are grossly intact. Impression: 1. Dilated small bowel loops with air-fluid levels which radiographically has the appearance of distal small bowel obstruction. Findings are stable from previous exam. 2. Other findings which are felt to be incidental. Diagnostic code #3 Study was dictated in MDT
[2019-07-12] MEDS: D5 1/2 NS w/ 20 mEq/L KCl 1,000 ML IV SCH (10:55)
[2019-07-12 12:18] VITALS: BP 138/97; PULSE 60
[2019-07-12] MEDS: Acetaminophen 325 MG Tab PO PRN (13:28)
== END 2019-07-12 15:10 | DRG 390 ==
LOC: JD.ED 07:37 → JD.MS 12:40
PROVIDERS: ADMIT Surgery; ATTEND Surgery
PROC: 0D9670Z Drainage of Stomach with Drainage Device, Via Natural or Artificial Opening (ICD-10-PCS; principal; 2019-07-07)
PROC: 0DJD8ZZ Inspection of Lower Intestinal Tract, Via Natural or Artificial Opening Endoscopic (ICD-10-PCS; 2019-07-08)
DX: K56.600 Partial intestinal obstruction, unspecified as to cause (principal); K59.8 Other specified functional intestinal disorders; Z79.82 Long term (current) use of aspirin; Z79.899 Other long term (current) drug therapy; F17.210 Nicotine dependence, cigarettes, uncomplicated
CPT/HCPCS: 00811; 36415; 74019; 74019-26; 74177; 74177-26; 80048; 80053; 80306; 83605; 83690; 83735; 85007; 85025; 85027; 86140; 86592; 87040; 87045; 87046; 87177; 87328; 87329; 87493; 87899; 93005; 96361; 96374; 96375; 96376; 99284; 99285-25; A9270-GY; J1170; J1200; J1644; J1885; J2001; J2405; J2543; J2704; J2765; J3010; J3475; J3480; J3490; J7030; J7050; J7120; Q9963; Q9967